=== PATIENT | male | born 1945 | race Caucasian/White ===

== ENCOUNTER 2017-10-03 06:06 | Inpatient (IN) | payer OTHER ==
[~2017-10-03] VITALS: Ht 177.8 cm; Wt 88.3 kg
[~2017-10-03 06:06] MED LIST: ZESTRIL10 MG PO; Zestril,Prinivil PO
[2017-10-03 06:51] LABS: HEMATOCRIT 41.4 % (38.0-50.0); MCH 31.4 PG (29.0-34.0); MCHC 34.1 G/DL (30.0-36.0); MCV 92.2 FL (86-99); MEAN PLAT.VOLUME 10.3 uM^3 (9.0-12.4); PLATELET COUNT 304 K/uL (156-360); RBC DIS.WIDTH-CV 11.9 % (11.8-14.6); RBC DIS.WIDTH-SD 40.2 % (39-53); RED BLOOD COUNT 4.49 M/uL (4.00-5.50); WHITE BLOOD COUNT 12.4 K/uL (4.1-10.2)
[2017-10-03 06:52] LABS: CARBON DIOXIDE (BICARBONATE) 31.9 MEQ/L (20-31)
[2017-10-03 07:05] LABS: CHLORIDE 94 mEq/L (99-109); POTASSIUM 4.4 mEq/L (3.7-5.4); SODIUM 135 mEq/L (136-147)
[2017-10-03 07:08] LABS: ANION GAP 13 MEQ/L (2-14); GLUCOSE 455 mg/dL (70-99)
[2017-10-03 07:11] LABS: GFR ESTIMATE (CALCULATED) > 59 mL/min/; TROP-I INTERPRETATION NEGATIVE; TROPONIN-I < 0.01 ng/mL (0.0-0.30)
[2017-10-03 07:12] LABS: UREA NITROGEN (BUN) 25 mg/dL (9-23)
[2017-10-03] MEDS ORDERED: [UNRECOGNIZED DRUG - OTHER] PO (09:51)
[2017-10-03 17:04] LABS: POINT-OF-CARE METER ID UU13113702
[2017-10-03 20:09] VITALS: BP 153/74
[2017-10-03 21:17] LABS: POINT-OF-CARE METER ID UU13113774
[2017-10-03 23:25] VITALS: BP 123/61
[2017-10-04 05:59] LABS: POINT-OF-CARE METER ID UU13113774
[2017-10-04 07:15] VITALS: BP 131/75
[2017-10-04 07:29] LABS: ANION GAP 11 MEQ/L (2-14); CHLORIDE 101 MEQ/L (99-109); GFR ESTIMATE (CALCULATED) > 59 mL/min/; GLUCOSE 318 mg/dL (70-99); SAMPLE HEMOLYSIS CHECK 0; SAMPLE ICTERIC CHECK 0; SAMPLE LIPEMIA CHECK 0; SODIUM 138 MEQ/L (136-147); UREA NITROGEN (BUN) 28 mg/dL (9-23)
[2017-10-04 11:59] LABS: POINT-OF-CARE METER ID UU13113774
[2017-10-04 15:52] VITALS: BP 129/70
[2017-10-04 20:10] VITALS: BP 136/77
[2017-10-04 21:11] LABS: POINT-OF-CARE METER ID UU13113774
[2017-10-05 06:09] LABS: POINT-OF-CARE METER ID UU13113725
[2017-10-05 07:15] VITALS: BP 152/74
[2017-10-05 07:32] LABS: Estimated Average Glucose 223 mg/dL (70-123); HEMOGLOBIN A1c (GLYCOHEMOGLOB) 9.4 % HGB (Below 5.7)
[2017-10-05 08:23] VITALS: BP 126/75
[2017-10-05 11:13] LABS: POINT-OF-CARE METER ID UU13113774
[2017-10-05 14:55] VITALS: BP 132/73
[2017-10-05 15:32] LABS: POINT-OF-CARE METER ID UU13113774
[2017-10-05 16:09] LABS: POINT-OF-CARE METER ID UU13113675
[2017-10-05 22:49] VITALS: BP 117/66
[2017-10-06 06:14] LABS: POINT-OF-CARE METER ID UU13113725
[2017-10-06 07:55] VITALS: BP 112/64
[2017-10-06 11:41] LABS: POINT-OF-CARE METER ID UU13113774
[2017-10-06 15:29] VITALS: BP 121/73
[2017-10-06 16:54] LABS: POINT-OF-CARE METER ID UU13113774
[2017-10-06 20:49] LABS: POINT-OF-CARE METER ID UU13113774
[2017-10-06 23:05] VITALS: BP 117/71
[2017-10-07 05:58] LABS: POINT-OF-CARE METER ID UU13113774
[2017-10-07 08:43] VITALS: BP 128/68
[2017-10-07 11:33] LABS: POINT-OF-CARE METER ID UU13113725
[2017-10-07 16:09] VITALS: BP 108/68
[2017-10-07 16:12] LABS: POINT-OF-CARE METER ID UU13113725
[2017-10-07 21:32] LABS: POINT-OF-CARE METER ID UU13113725
[2017-10-07 23:05] LABS: POINT-OF-CARE METER ID UU13113774
[2017-10-08 05:35] LABS: POINT-OF-CARE METER ID UU13113725
[2017-10-08 07:53] VITALS: BP 124/72
[2017-10-08 11:25] LABS: POINT-OF-CARE METER ID UU13113725
[2017-10-08 16:07] LABS: POINT-OF-CARE METER ID UU13113774
== END 2017-10-08 17:08 | disposition home or self-care (01) | DRG 987 ==
LOC: EME 06:06 → EDOF 16:39 → 5EAST 16:39 → ENRESERV 17:18 → 5EAST 19:31
PROVIDERS: Emergency Medicine; Internal Medicine
PROC: 0LQ80ZZ Repair Left Hand Tendon, Open Approach (ICD-10-PCS; principal; 2017-10-05)
DX: J44.1 Chronic obstructive pulmonary disease with (acute) exacerbation (principal); J44.0 Chronic obstructive pulmonary disease with (acute) lower respiratory infection; J18.9 Pneumonia, unspecified organism; J98.11 Atelectasis; S66.321A Laceration of extensor muscle, fascia and tendon of left index finger at wrist and hand level, initial encounter; S61.211A Laceration without foreign body of left index finger without damage to nail, initial encounter; W26.0XXA Contact with knife, initial encounter; E11.65 Type 2 diabetes mellitus with hyperglycemia; E86.0 Dehydration; I10 Essential (primary) hypertension; Z91.14 Patient's other noncompliance with medication regimen; Z82.0 Family history of epilepsy and other diseases of the nervous system; Z83.3 Family history of diabetes mellitus; Z86.73 Personal history of transient ischemic attack (TIA), and cerebral infarction without residual deficits; Z87.891 Personal history of nicotine dependence
CPT/HCPCS: 70450; 71020; 73130; 80048; 82803; 82948; 83036; 83605; 83880; 84484; 85027; 87040; 90686; 93005; 94010; 94640; 94640 76; 94667; 94760; 94799; 99202; 99281; 99285; J1100; J1815; J2250; J2405; J2543; J3010; J7050; J7120; S0020